=== PATIENT | male | born 1970 ===

== ENCOUNTER 2018-11-07 12:03 | Emergency (ER) | payer BC ==
[~2018-11-07] VITALS: Ht 185.4 cm; Wt 95.3 kg
[2018-11-07] MEDS ORDERED: LOSARTAN POTASS50 MG PO (12:22)
== END 2018-11-07 16:03 | disposition home or self-care (01) ==
LOC: ER 12:03
DX: B34.9 Viral infection, unspecified (principal); J11.1 Influenza due to unidentified influenza virus with other respiratory manifestations